=== PATIENT | female | born 1960 | race Caucasian/White ===

== ENCOUNTER → 2016-07-20 | Outpatient (CLI) | payer OTHER, MEDICAID ==
--- NOTE | 2016-07-20 14:11 | MR ---
MRI Lower Extremity, Left Knee History: Left knee pain. Evaluate for meniscal tear. Fall approximately two months ago. History of pr ior surgery. Comparison: April 2015. Technique: MRI performed of the left knee using a 3 [employer] MRI system. Sagittal, coronal, and axial im aging was obtained . Images were optimized to diminish metal susceptibility artifact. Findings General: Mild suprapatellar joint effusion. No evidence for bone contusion or occult fracture. Ligaments and Tendons: Postsurgical changes are seen of prior ACL reconstruction. There is mild abnor mal signal intensity of the graft that indicates mild tendinopathy without significant attenuation. P osterior cruciate ligament is intact. Medial collateral ligament and pes anserinus are unremarkable. Iliotibial band, fibular collateral ligament, and biceps femoris are unremarkable. Popliteus muscle a nd tendon are intact. Menisci and Cartilage: Small focal area of truncation at the free edge of the lateral meniscus is sim ilar in appearance. This could represent postsurgical change or small radial tear. Degenerative sign al is otherwise seen in both menisci without other findings for definitive tear. No significant carti river attenuation in the medial or lateral compartment. Extensor Mechanism: Cartilage signal abnormality is seen in the patella with thinning and fissuring a long the median ridge and extending to the medial facet of the patella. Mild cartilage signal abnorma lity and thinning are also seen in the trochlear groove which are more predominant centrally and medi al aspect of the trochlear groove with increased thinning over the interval. Mild abnormal signal int ensity in the patellar tendon with a surgical defect from prior graft harvest. Impressions 1. Postsurgical changes of anterior cruciate ligament reconstruction with mild tendinopathy with no s ignificant attenuation. 2. Small radial tear versus postsurgical change free edge of the body of the lateral meniscus. No oth er findings for lateral or medial meniscal tear. 3. Grade 1 and grade 2 articular cartilage disease in the patellofemoral compartment slightly worsene d over the interval. Mild tendinopathy and postsurgical change patellar tendon. 4. Mild suprapatellar joint effusion.
== END ==
LOC: FIMAGING 11:53
PROVIDERS: ATTEND Family Medicine
DX: M25.562 Pain in left knee (principal); M25.862 Other specified joint disorders, left knee; M25.462 Effusion, left knee

== ENCOUNTER → 2016-08-23 | Outpatient (CLI) | payer OTHER, MEDICAID ==
--- NOTE | 2016-08-23 18:10 | MR ---
MRI of the Lumbar Spine (Without Contrast) at 1224 hours Clinical Indications: M51.36, back pain, degenerative disk disease. Comparison: MRI March 2015. Technique: Sagittal and axial T1 and T2 and sagittal STIR MR sequences of the lumbar spine without co ntrast. Axial imaging from T12 through S1. Findings: Lumbar vertebral bodies are of normal height without compression fractures. Conus medulla ris appears normal and ends at L2. Moderate size rudimentary disk space labeled S1-S2. T11-T12: Sagittal images demonstrate ventral osteophytes without disk herniation or stenosis. T12-L1: No disk herniation or stenosis. L1-L2: No disk herniation or stenosis. L2-L3: No disk herniation or stenosis. L3-L4: No disk herniation or stenosis. L4-L5: Mild degenerative disk disease, broad-based disk herniation asymmetrically more prominent towa rds the left and moderate bilateral facet arthropathy resulting in mild central canal stenosis and mi ld bilateral neural foraminal stenosis. L5-S1: Moderate degenerative disk disease, moderate loss of disk height, broad-based central disk her niation, protrusion, with moderate bilateral facet arthropathy resulting in minimal degenerative grad e 1 anterolisthesis, mild bilateral neural foraminal stenosis, without central canal stenosis. S1-S2: Rudimentary disk space without disk herniation or stenosis. Since March 2015, there is slight increase in degenerative disk disease at L5-S1. Impression: 1. L5-S1: Moderate degenerative disk disease with degenerative grade 1 anterolisthesis, bilateral fac et arthropathy, and broad-based central disk herniation, protrusion, resulting in mild bilateral neur al foraminal stenosis without central canal stenosis. 2. L4-L5: Mild central canal stenosis and mild bilateral neural foraminal stenosis secondary to broad -based disk herniation, moderate bilateral facet arthropathy and mild degenerative disk disease. 3. Please see above findings at specific disk levels.
== END ==
LOC: FIMAGING 11:53
DX: M51.37 Other intervertebral disc degeneration, lumbosacral region (principal); M51.27 Other intervertebral disc displacement, lumbosacral region; M12.88 Other specific arthropathies, not elsewhere classified, other specified site

== ENCOUNTER 2017-04-14 16:13 | Emergency (ER) | payer OTHER, MEDICAID ==
--- NOTE | 2017-04-14 18:12 | EDPHY ---
H & P Stated Complaint: found lump in r sided labia 10 days ago Time Seen by Provider: 04/14/17 18:11 HPI/ROS: HPI: This is a 57-year-old female who presents with Chief Complaint: Lump left labia Location: lump Labia Quality: Lump Duration: 10 days ago Signs and Symptoms: No vaginal bleeding, no vaginal discharge, no dysuria, no back pain, no fevers, no chills, no weight loss, no dyspareunia, no erythema, no redness Timing: Stable Severity: Mild Context: Patient complains of finding a lump on her left labia that she incidentally noticed approximately 10 days ago. It has remained stable in size. Is not particularly painful. Her last range aid visit and pelvic exam was approximately 2-2.5 years ago. She is not currently sexually active. No concerns for sexually transmitted diseases. She does not shave her pubic hair. No history MRSA/DM. LMP: 4-6 months ago. Has an appointment with her OBGYN on May 04; cannot remember name. Modifying Factors: Comment: ROS: See HPI Constitutional: No fever, no chills, no weight loss Eyes: No blurred vision Respiratory: No shortness of breath, no cough Cardiovascular: No chest pain Gastrointestinal: No nausea, no vomiting no diarrhea Genitourinary: No dysuria Extremities: No myalgias Neurologic: No weakness, no numbness Skin: No rashes Hematologic: No bruising, no bleeding MEDICAL/SURGICAL/SOCIAL HISTORY: Medical history: TBI,vertigo,syncope,left temporal lobe lesions,cervical stenosis, hx of frequent syncope, Bowhunters syndrome, TIAs, PE 80's Surgical history: multiple ortho surgeries CONSTITUTIONAL: awake and alert, no obvious distress HEENT: Atraumatic and normocephalic, PERRL, EOMI. Tympanic membranes clear. Oropharynx clear, no exudate and moist pink mucosa. Airway patent. No lymphadenopathy. No meningismus. Cardiovascular: Normal S1/S2, regular rate, regular rhythm, without murmur rub or gallop. PULMONARY/CHEST: Symmetrical and nontender. Clear to auscultation bilaterally. Good air movement. No accessory muscle usage. ABDOMEN: Soft, nondistended, nontender, no rebound, no guarding, no peritoneal signs, no masses or organomegaly. No CVAT. PELVIC: normal external genitalia, normal cervix, cervical os was closed, no cervical motion tenderness, 4 cm flesh colored pedunculated tissue mass noted in left endocervical canal, no discharge, no bleeding. The exam was performed with a marketing planner. EXTREMITIES: 2/2 pulses, no deformities, no clubbing, no cyanosis or edema. NEUROLOGICAL: no focal neuro deficits. GCS 15. SKIN: Warm and dry, no erythema. no rash. Good capillary refill. Source: Patient Exam Limitations: No limitations - Personal History Current Tetanus/Diphtheria Vaccine: Yes Tetanus Vaccine Date: 2014 - Medical/Surgical History Hx Asthma: No Hx Chronic Respiratory Disease: No Hx Diabetes: No Hx Cardiac Disease: No Hx Renal Disease: No Hx Cirrhosis: No Hx Alcoholism: No Hx HIV/AIDS: No Hx Splenectomy or Spleen Trauma: No Other PMH: tbi,vertigo,syncope,left temporal lobe lesions,cervical stenosis, hx of frequent syncope, Bowhunters syndrome, TIAs, PE 80's, multiple ortho surgeries - Social History Smoking Status: Never smoked Constitutional: Initial Vital Signs Temperature (C) 37.1 C 04/14/17 16:22 Heart Rate 60 04/14/17 16:22 Respiratory Rate 16 04/14/17 16:22 Blood Pressure 129/75 H 04/14/17 16:22 O2 Sat (%) 96 04/14/17 16:22 O2 Delivery Mode Room Air Allergies/Adverse Reactions: divalproex sodium [From Depakote] Allergy (Verified 04/14/17 16:21) metals Allergy (Uncoded 04/30/15 22:13) Home Medications: Medication Instructions Recorded Multivitamins [Multivitamin (*)] 1 tab PO DAILY 04/27/13 Aspirin [Aspirin 81mg (*)] 81 mg PO DAILY 10/30/14 Oxycodone HCl/Acetaminophen 1 each PO DAILY PRN 12/11/14 [Percocet 7.5-325 mg Tablet] Medical Decision Making ED Course/Re-evaluation: Postmenopausal Pelvic exam was performed; no signs of abscess/cellulitis/fistula/bladder prolapse. Pelvic ultrasound ordered. 2123: Called by radiologist and ultrasound shows small uterine fibroids at her intramural; no masses/ovarian torsion/ovarian cyst Advised patient that she needs to follow up with the shell assembler for her Pap smear and biopsy Differential Diagnosis: Differential includes cyst, abscess, bladder prolapse, malignancy. - Data Points Medications Given: Discontinued Medications Oxycodone/Acetaminophen (Percocet 5/325) 1 tab PO EDNOW ONE Stop: 04/14/17 21:02 Last Admin: 04/14/17 21:05 Dose: 1 tab Oxycodone/Acetaminophen (Percocet 5/325) 1 tab PO EDNOW ONE Stop: 04/14/17 21:05 Last Admin: 04/14/17 21:23 Dose: Not Given Tramadol HCl (Ultram) 50 mg PO EDNOW ONE Stop: 04/14/17 20:40 Last Admin: 04/14/17 21:23 Dose: Not Given Departure - Departure Disposition: Home, Routine, Self-Care Clinical Impression: Vaginal cyst, Skin tag of vaginal mucosa Condition: Good Instructions: Vaginal Atrophy (ED) Additional Instructions: Your ultrasound today does not show fistula, rectocele, cystocele, abscess, ovarian torsion. Please follow-up with OBGYN for repeat pelvic examination, Pap smear, biopsy. Referrals: Lucero Kim MD [Medical Doctor] - As per Instructions
[2017-04-14] MEDS ORDERED: traMADol 50 MG TAB PO ONE (20:39)
[2017-04-14] MEDS ORDERED: OXYCODONE/APAP 5/325 TAB PO ONE ×2 (21:01→21:04)
[2017-04-14 21:55] VITALS: BP 138/89; PULSE 69; RESP 18; TEMP 98.4; O2SAT 94
== END 2017-04-14 21:56 | disposition home or self-care (01) ==
DX: N89.8 Other specified noninflammatory disorders of vagina (principal); N90.89 Other specified noninflammatory disorders of vulva and perineum; Z79.82 Long term (current) use of aspirin

== ENCOUNTER → 2018-04-27 | Outpatient (CLI) | payer OTHER, MEDICAID | LOC: FIMAGING 12:42 | DX: Z12.31 Encounter for screening mammogram for malignant neoplasm of breast (principal) ==

== ENCOUNTER → 2018-08-11 | Outpatient (CLI) | payer OTHER, MEDICAID | LOC: FIMAGING 17:57 | DX: S06.9X9A Unspecified intracranial injury with loss of consciousness of unspecified duration, initial encounter (principal); M46.97 Unspecified inflammatory spondylopathy, lumbosacral region; M51.37 Other intervertebral disc degeneration, lumbosacral region ==

== ENCOUNTER → 2018-09-14 | Outpatient (CLI) | payer OTHER, MEDICAID ==
[~2018-09-14] MED LIST: GADOBUTROL 10 ML VIAL IVP ONE
== END ==
LOC: FIMAGING 12:37
PROVIDERS: ATTEND Psychiatry & Neurology Neurology
DX: F07.81 Postconcussional syndrome (principal); G93.0 Cerebral cysts
CPT/HCPCS: 70553; A9585